=== PATIENT | female | born 1985 | race Caucasian/White ===

== ENCOUNTER 2020-12-27 18:41 | Outpatient (CLI) | payer SELFPAY ==
[2020-12-27 19:23] LABS: Appearance,Urine Clear (Clear); Bacteria,Urine Rare /hpf; Bilirubin,Urine Negative (Negative); Blood,Urine Negative (Negative); Color,Urine Light Yellow; Glucose,Urine (UA) Negative (Negative); Ketones,Urine Negative (Negative); Leukocyte Esterase,Urine Moderate (Negative); Nitrite,Urine Negative (Negative); PH, Urine 6.5 (5.0-8.0); Protein,Urine Negative (Negative); RBC,Urine 1 /hpf (0-5); Specific Gravity,Urine 1.009 (1.001-1.035); Squamous Epithelial Cell,Urine 4 /hpf (0-4); Urobilinogen,Urine <2.0 mg/dL (<2.0); WBC,Urine 2 /hpf (0-5)
[2020-12-27 19:34] LABS: Amphetamine Screen,Urine Not Detected (NotDetected); Barbiturate Screen,Urine Not Detected (NotDetected); Benzodiazepines Screen,Urine Not Detected (NotDetected); Cocaine Screen,Urine Not Detected (NotDetected); Methadone Screen, Urine Not Detected (NotDetected); Opiate Screen,Urine Not Detected (NotDetected); Oxycodone Screen, Urine Not Detected (NotDetected); Phencyclidine Screen,Urine Not Detected (NotDetected); Tricyclic Antidepressant,Urine Not Detected (NotDetected); Urn Cannabinoid Scrn Not Detected (NotDetected)
[2020-12-27 19:38] LABS: Anisocytosis Slight; Basophils % (A) 0 %; Eosinophils # (A) 0.1 k/uL (0-0.7); Eosinophils % (A) 1 %; HCT 27.2 % (34.0-46.0); HGB 9.1 gm/dL (11.4-16.0); Hypochromasia Moderate; Lymphocytes # (A) 1.6 k/uL (1.0-4.8); Lymphocytes % (A) 20 %; MCH 23.9 pg (25.0-35.0); MCHC 33.4 g/dL (31.0-37.0); MCV 71.4 fL (80.0-100.0); Mean Platelet Volume 8.9; Microcytosis Moderate; Monocytes # (A) 0.7 k/uL (0-1.0); Monocytes % (A) 10 %; Neutrophils # (A) 5.2 k/uL (1.3-7.7); Neutrophils % (A) 68 %; Platelet Count 192 k/uL (150-450); Poikilocytosis Slight; RBC 3.81 m/uL (3.80-5.40); RDW 16.4 % (11.5-15.5); WBC 7.7 k/uL (3.8-10.6)
[2020-12-27 20:38] VITALS: BP 127/85; PULSE 112; RESP 16; TEMP 97.2
--- NOTE | 2020-12-27 20:45 | P.MSEPDOC ---
Presenting Problems - Arrival Data Date of Arrival on Unit: 12/27/20 Time of Arrival on Unit: 18:25 Mode of Transport: Wheelchair - Complaint OB-Reason for Admission/Chief Complaint: Other Comment: Pt has care at [facility], pt states she wants to deliver here because she does not like the care she recieves in [place]. Medical History - Information : 9 Para: 2 Term: 1 : 1 Abortions: Spontaneous or Elective: 6 Number of Living Children: 1 - Gestational Age Gestational Age by DELBERT (wks/days): 37 Weeks and 1 Days - History Complications: Prior , Other Comment: Pt was delivered at 34 weeks in 2008 because the infant had a large brain tumor at 10 weeks of age. Review of Systems - Review of Systems Constitutional: No problems Breast: No problems ENT: No problems Cardiovascular: No problems Respiratory: No problems Gastrointestinal: No problems Genitourinary: No problems Musculoskeletal: No problems Neurological: No problems Skin: No problems Comment: pt has RA and PTSD Vital Signs - Temperature Temperature: 97.2 F Temperature Source: Temporal Artery Scan - Pulse Right Sitting Pulse Rate: 112 Pulse Assessment Method: Automatic Cuff - Respirations Respiratory Rate: 16 Oxygen Delivery Method: Room Air O2 Sat by Pulse Oximetry: 99 - Blood Pressure Right Arm Sitting Blood Pressure: 127/85 Blood Pressure Mean: 99 Blood Pressure Source: Automatic Cuff Medical Screen Scoring (Pre) - Cervical Exam Dilation: 1-3 cm = 1 Membranes: Intact - Uterine Contractions Frequency: > 5 minutes apart = 1 Duration: N/A Intensity: N/A - Maternal Vital Signs Maternal Temperature: N/A Signs of Preeclampsia: N/A Maternal Respirations: N/A - Assessment - Baby A Baseline FHR: 115 Position: N/A Station: N/A - Total Score - Baby A Total Score - Baby A: 2 - Total Score - Baby B Total Score - Baby B: 2 - Total Score - Baby C Total Score - Baby C: 2 - Level of Risk - Baby A Level of Risk - Baby A: Low (0-5) - Level of Risk - Baby B Level of Risk - Baby B: Low (0-5) - Level of Risk - Baby C Level of Risk - Baby C: Low (0-5) Physician Notification (Pre) - Physician Notified Physician Notified Date: 12/27/20 Physician Notified Time: 18:25 New Order Received: Yes - Notification Comment Comment: labs, UA, UDS ordered Disposition - Disposition OB Disposition: Discharge to home, Written follow up instructions reviewed Discharge Date: 12/27/20 Discharge Time: 20:05 I agree with the RN Medical Screening Exam: Yes Case reviewed; plan agreed upon as documented in EMR&OBIX.: Yes Diagnosis: FALSE LABOR AT OR AFTER 37 COMPLETED WEEKS OF GESTATION (This patient is a 35-year-old multigravida patient who is 37 weeks by reported estimated date of confinement who called labor and delivery earlier today stating that she was coming with complaints of contractions. We do not have any records on this patient. She reportedly lives in [place] and is getting care at the [facility]. She states that she is unhappy with her care there although she is seen on a weekly basis and felt that she was having labor and therefore drove 4 hours from [place] to rule out labor. Patient's heart tones are category 1 without decelerations. Patient is not having any regular contractions and cervix is 1 cm despite observing her for over 1 hour. I did have a long discussion with the patient and her partner in regards to follow-up care. She is not living in this area and she only drove here from [place] to be checked thinking she was in labor. Patient states that she's driving back to be seen her physician tomorrow for a visit. Strongly encouraged her to continue care in [place] and did caution against driving long distances thought she was in labor. I advised her that she would get optimal care she delivered at her [facility] in [place]. I did also tell her she is always welcome to come to this facility however is very unreasonable to drive this long distance given this is not her first baby. At this point is no evidence maternal compromise. Patient is not in labor. Patient is discharged home to return if any concerns.)
[2020-12-28 15:17] LABS: C. trachomatis,PCR Negative (Neg,Equiv); Chlamydia trachomatis Source Urine; N. gonorrhoeae,PCR Negative (Neg,Equiv); Neisseria Source Urine
[2020-12-28 18:06] LABS: Hepatitis B Surface Antigen Non-Reactive (Non-Reactive)
== END 2020-12-27 20:05 | disposition home or self-care (01) ==
LOC: FBPOP 18:41
PROVIDERS: ATTEND Obstetrics & Gynecology
DX: O47.1 False labor at or after 37 completed weeks of gestation (principal); Z3A.37 37 weeks gestation of pregnancy
CPT/HCPCS: 59025; 80306; 81001; 82947; 85025; 86762; 86780; 86850; 86900; 86901; 87340; 87390; 87491; 87591; 99213